=== PATIENT | female | born 1980 | race African-American/Black ===

== ENCOUNTER 2017-03-01 23:59 | Emergency (ER) | payer OTHER ==
[~2017-03-01] VITALS: Ht 170.2 cm; Wt 78.0 kg
[~2017-03-01 23:59] MED LIST: APAP500 PO; COLACE 100 MG100 MG PO; CRUTCH1 EACH MC; DERMOPLAST SPRA56 ML; HYDROCORTISONE30 G9 RE; IBUPROFEN 600600 M1 PO; IBUPROFEN 800800 M1 PO; IBUPROFEN 800800 MG PO; IRON325 PO; IROSPAN 24/6 T1 EACH PO; LANOLIN56 GM; METOPROLOL SUCC50 MG PO; NAPROSYN500 MG PO; NOHOMEMEDICATIONS; NORCO 5-325 TA1 EACH PO; NORETHIN ESTRA PO; PRENATAL TABLE1 EAC3 PO; PROTONIX40 M2 PO; TRAMADOL 50 MG50 MG PO; TUCKS MEDICATE1 EAC1 TOP; VITAMIN D 5050000 I1 PO
[2017-03-02] MEDS ORDERED: APAP650 PO (00:02)
[2017-03-02] MEDS ORDERED: IBUPROFEN 600600 M1 PO (00:02)
[2017-03-02] MEDS ORDERED: NORCO 5-325 TA1 EACH PO (02:10)
[2017-03-02 02:31] VITALS: BP 178/80
== END 2017-03-02 02:33 | disposition home or self-care (01) ==
LOC: ER 23:59
DX: S60.221A Contusion of right hand, initial encounter (principal); I10 Essential (primary) hypertension; J45.909 Unspecified asthma, uncomplicated; F10.99 Alcohol use, unspecified with unspecified alcohol-induced disorder; Z90.710 Acquired absence of both cervix and uterus; Z88.2 Allergy status to sulfonamides; W20.8XXA Other cause of strike by thrown, projected or falling object, initial encounter; Y93.89 Activity, other specified; Y92.89 Other specified places as the place of occurrence of the external cause; Y99.0 Civilian activity done for income or pay

== ENCOUNTER 2017-12-25 17:41 | Emergency (ER) | payer BC ==
[~2017-12-25] VITALS: Ht 167.6 cm; Wt 73.5 kg
[~2017-12-25 17:41] MED LIST changes: +APAP650 PO
[2017-12-25 17:55] LABS: URINE BILIRUBIN NEGATIVE (Negative); URINE BLOOD 3+ (Negative); URINE CLARITY CLOUDY; URINE COLOR RED; URINE GLUCOSE-RANDOM* TRACE (Negative); URINE KETONES 2+ (Negative); URINE LEUKOCYTES 2+ (Negative); URINE NITRITE POSITIVE (Negative); URINE PROTEIN (DIPSTICK) 3+ (Negative)
[2017-12-25 17:59] VITALS: BP 149/94
[2017-12-25 18:07] LABS: CASTS None Seen /LPF (None Seen); CRYSTALS None Seen /LPF (None Seen); URINE RBC >20 Many /HPF (0-2)
[2017-12-25 18:08] LABS: BACTERIA 1-9 Few /HPF (None Seen); SQUAMOUS 0-3 Few /LPF (0-3); URINE WBC 6-15 Few /HPF (0-5)
[2017-12-25 18:18] LABS: ABSOLUTE NEUTROPHILS 5.1 thou/uL (1.4-8.2); BASOPHILS 0.7 % (0.0-2.0); EOSINOPHILS 1.9 % (0.0-3.0); HEMOGLOBIN 12.3 gm/dL (12.0-15.0); LYMPHOCYTES 27.4 % (24.0-44.0); MCH 28.3 pg (26.0-34.0); MCHC 34.1 g/dL (28.0-37.0); MCV 83.1 fL (80.0-100.0); MONOCYTES 8.3 % (1.0-8.0); PLATELET COUNT 326 thou/uL (150-400); POLYS 61.7 % (36.0-66.0); RBC 4.34 mil/uL (4.20-5.00); RDW 15.3 % (10.5-14.5); WBC 8.3 thou/uL (4.0-11.0)
[2017-12-25 18:26] LABS: CALCIUM 9.4 mg/dL (8.5-10.1); CREATININE 1.4 mg/dL (0.6-1.0); POTASSIUM 3.8 mmol/L (3.5-5.1)
[2017-12-25 18:31] LABS: ALBUMIN 4.1 g/dL (3.4-5.0); DIRECT BILIRUBIN 0.2 mg/dL (<0.1-0.3); TOTAL PROTEIN 8.1 g/dL (6.4-8.2)
[2017-12-25] MEDS ORDERED: ZOFRAN ODT4 MG PO (19:38)
[2017-12-25] MEDS ORDERED: KEFLEX500 M1 PO (19:38)
[2017-12-25] MEDS ORDERED: ULTRAM 50MG TAB50 MG PO (19:38)
== END 2017-12-25 20:10 | disposition home or self-care (01) ==
LOC: ER 17:41
PROVIDERS: Emergency Medicine
DX: N12 Tubulo-interstitial nephritis, not specified as acute or chronic (principal); I10 Essential (primary) hypertension; J45.909 Unspecified asthma, uncomplicated; E07.9 Disorder of thyroid, unspecified; G43.909 Migraine, unspecified, not intractable, without status migrainosus; Z90.710 Acquired absence of both cervix and uterus; Z88.2 Allergy status to sulfonamides

== ENCOUNTER 2018-11-04 17:35 | Emergency (ER) | payer BC ==
[~2018-11-04] VITALS: Ht 162.6 cm; Wt 68.0 kg
[~2018-11-04 17:35] MED LIST changes: +KEFLEX500 M1 PO; +ULTRAM 50MG TAB50 MG PO; +ZOFRAN ODT4 MG PO
[2018-11-04 19:16] LABS: ABSOLUTE NEUTROPHILS 4.6 thou/uL (1.4-8.2); BASOPHILS 0.3 % (0.0-2.0); EOSINOPHILS 3.9 % (0.0-3.0); HEMOGLOBIN 12.2 gm/dL (12.0-15.0); MCH 28.5 pg (26.0-34.0); MCHC 33.9 g/dL (28.0-37.0); MCV 84.2 fL (80.0-100.0); MONOCYTES 8.5 % (1.0-8.0); PLATELET COUNT 266 thou/uL (150-400); POLYS 58.3 % (36.0-66.0); RBC 4.27 mil/uL (4.20-5.00); RDW 15.1 % (10.5-14.5); WBC 7.8 thou/uL (4.0-11.0)
[2018-11-04 19:22] LABS: CALCIUM 8.8 mg/dL (8.5-10.1); POTASSIUM 3.6 mmol/L (3.5-5.1)
[2018-11-04] MEDS ORDERED: CARAFATE 1 GM TA1 G1 PO (19:26)
[2018-11-04] MEDS ORDERED: OMEPRAZOLE40 MG PO (19:26)
[2018-11-04 19:50] VITALS: BP 142/96
--- NOTE | 2018-11-05 08:00 | EKG ---
[address] [address] ELECTROCARDIOGRAM REPORT Name: DANIELLE MATTSON [id number] ������������������ Admission: 11/04/18 ������������������ Attend Phys: Discharge: 11/04/18 ������������������ Date of : 80 Report #: [id number] ����������������������������������������������������������������� [id number] THIS REPORT FOR: //name// [facility] ED Test Date: 2018-11-04 Test Time: 17:39:49 Pat Name: DANIELLE MATTSON Department: Room: Gender: F Front Office Clerk: RADHA : 1980 Requested By: Fadi Wright Order Number: [id number] MD: Toi Baron Measurements Intervals [place] Rate: 70 P: 72 DE: 146 QRS: 16 QRSD: 75 T: 35 QT: 373 QTc: 403 Interpretive Statements Sinus rhythm Normal tracing Compared to ECG 02/09/2012 15:50:28 No significant change was found Electronically Signed On 11-05-2018 7:59:45 CDT by Toi Baron [email or web address] ��������������������������������������������� <ELECTRONICALLY SIGNED> ���������������������������������������� By: Toi Baron MD, [facility] ��������������������������������������������� 11/05/18 [id number] Toi Baron MD, FACC /EPI
== END 2018-11-04 19:55 | disposition home or self-care (01) ==
LOC: ER 17:35
PROVIDERS: Nurse Practitioner
DX: K21.9 Gastro-esophageal reflux disease without esophagitis (principal); J45.909 Unspecified asthma, uncomplicated; I10 Essential (primary) hypertension; G43.909 Migraine, unspecified, not intractable, without status migrainosus; Z90.710 Acquired absence of both cervix and uterus; Z88.2 Allergy status to sulfonamides